=== PATIENT | female | born 1955 | race Caucasian/White ===

== ENCOUNTER 2018-04-29 08:29 | Emergency (ER) | payer OTHER ==
[2018-04-29] MEDS ORDERED: NA CHLORIDE 0.9% 1,000 ML ONE (09:04)
[2018-04-29] MEDS ORDERED: LORazepam 2 MG/ML VIAL ONE (09:04)
--- NOTE | 2018-04-29 09:11 | RAD REPORT ---
EXAM DESCRIPTION: CT - Head Brain Wo Cont - 04/29/2018 9:02 am CLINICAL HISTORY: Transient alteration of awareness, seizure like activity COMPARISON: None. TECHNIQUE: Axial 5 mm thick images of the head were obtained without IV contrast. All CT scans are performed using dose optimization technique as appropriate and may include automated exposure control or mA/KV adjustment according to patient size. FINDINGS: No intracranial hemorrhage, mass, edema or shift of mid-line structures. No acute infarcti on changes seen. Moderate severity atrophy changes are present. Ventricles are in proportion. Chronic ischemic changes are minimal. Asymmetry is created by head tilt and slight rotation. Mastoid air cells and visualized portions of the paranasal sinuses are clear. No acute bony findings. IMPRESSION: Moderate severity atrophy with no hemorrhage, mass or acute intracranial finding.
[2018-04-29 09:22] LABS: Absolute Lymphocytes (CBC) 1.7 K/uL (0.7-4.9); Absolute Monocytes 0.5 K/uL (0.1-1.3); Absolute Neutrophil 4.8 K/uL (1.8-8.0); Basophils % 0.7 % (0-1.3); Eosinophils % 3.8 % (0-4.4); Hematocrit 36.5 % (36.0-45.0); Lymphocytes % 23.8 % (15.3-44.8); MPV 8.1 fL (7.6-11.3); Monocytes % 6.2 % (3.3-12.3); RBC Red Blood Cell Count 3.89 M/uL (3.86-4.86)
[2018-04-29 09:30] LABS: Arterial Blood Carboxyhemoglob 0.9 % (0-1.5); Blood Gas Oxyhemoglobin 67.2 % (94-97); Blood O2 Saturation 68.4 % (92-98.5)
[2018-04-29 09:31] LABS: Bilirubin Direct 0.1 mg/dL (0-0.2); Bilirubin Total 0.4 mg/dL (0.2-1.0); Magnesium 2.1 mg/dL (1.8-2.4); Protein, Total 6.1 g/dL (6.4-8.2); Troponin (Emerg Dept Use Only) 0.09 ng/mL (0.0-0.045)
[2018-04-29 09:34] LABS: Protime INR 0.89
--- NOTE | 2018-04-29 10:39 | ER ---
Nurse's Notes [facility] Name: Mary Barajas Age: 62 yrs Sex: Female : 1955 Arrival Date: 04/29/2018 Time: 08:30 Bed 2 Private MD: Diagnosis: Weakness-seizure like activity;Do not resuscitate Presentation: 04/29 08:30 Presenting complaint: EMS states: from [facility], reported to have seizure like hj activity this AM, per staff, turned cyanotic,per EMS, on scene, pt was alert and restless; BGL- 110; O2 sat- 97-98%; ativan 2 mg Im given at 8:13am; pt has DNR papers on file from correction;. Transition of care: patient was not received from another setting of care. Onset of symptoms was April 29, 2018. Risk Assessment: Do you want to hurt yourself or someone else? Patient reports no desire to harm self or others. Initial Sepsis Screen: Does the patient meet any 2 criteria? No. Patient's initial sepsis screen is negative. Does the patient have a suspected source of infection?. Care prior to arrival: None. 08:30 Method Of Arrival: EMS: [facility] 08:30 Acuity: SAVAGE 3 hj Triage Assessment: 08:36 General: Appears in no apparent distress. uncomfortable, Behavior is cooperative, hj restless. Pain: Denies pain. EENT: No signs and/or symptoms were reported regarding the EENT system. Neuro: Level of Consciousness is awake, confused, listless, Oriented to none. Historical: - Allergies: 08:36 No Known Allergies; hj - Home Meds: 08:36 Bentyl 10 mg Oral cap 1 cap 3 times per day [Active]; lisinopril 10 mg Oral tab 1 tab hj once daily [Active]; ProAir HFA 90 mcg/actuation inhalation HFAA 1 puff every 4-6 hours [Active]; - PMHx: 08:36 Alzheimers; COPD; hj - PSHx: 08:36 Unable to obtain; hj - Immunization history:: Adult Immunizations unknown. - Social history:: Smoking status: unknown. - Ebola Screening: : Patient negative for fever greater than or equal to 101.5 degrees Fahrenheit, and additional compatible Ebola Virus Disease symptoms Patient denies exposure to infectious person Patient denies travel to an Ebola-affected area in the 21 days before illness onset. - Family history:: not pertinent. Screenin:36 Abuse screen: Denies threats or abuse. Denies injuries from another. Nutritional hj screening: No deficits noted. Tuberculosis screening: No symptoms or risk factors identified. Fall Risk None identified. Assessment: 08:36 General: Appears in no apparent distress. uncomfortable, slender, Behavior is restless. hj Pain: Denies pain. Neuro: Level of Consciousness is awake, confused, Oriented to none. Cardiovascular: Capillary refill < 3 seconds Patient's skin is warm and dry. Respiratory: Airway is patent Respiratory effort is even, unlabored, Respiratory pattern is regular, symmetrical. GI: No signs and/or symptoms were reported involving the gastrointestinal system. : No signs and/or symptoms were reported regarding the genitourinary system. EENT: No signs and/or symptoms were reported regarding the EENT system. Derm: No signs and/or symptoms reported regarding the dermatologic system. Musculoskeletal: No signs and/or symptoms reported regarding the musculoskeletal system. 09:49 Reassessment: Patient and/or family updated on plan of care and expected duration. Pain hj level reassessed. family in room;. 10:35 Reassessment: Patient and/or family updated on plan of care and expected duration. Pain hj level reassessed. awaiting results and POC;. 11:53 Reassessment: Patient and/or family updated on plan of care and expected duration. Pain hj level reassessed. hospitalist in room with family; family expressed desire for hospice care;. 12:37 Reassessment: D/C instructions given to family;. hj 12:41 Reassessment: dental secretary to call [facility] for transport;. 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 hj 14:47 Reassessment: ash D/C'd; verbal order from Dr. Fraga. Reassessment: Patient and/or hj family updated on plan of care and expected duration. Pain level reassessed. [employer] here to peanut picker pt;. Vital Signs: 08:38 BP 110 / 82; Pulse 63; Resp 18; Temp 97.9(R); Pulse Ox 98% on R/A; Weight 68.04 kg; hj Height 5 ft. 3 in. (160.02 cm); 09:37 BP 106 / 90; Pulse 72; Resp 18; Pulse Ox 100% on R/A; hj 10:36 BP 92 / 67; Pulse 75; Resp 18; Pulse Ox 100% on R/A; hj 11:10 BP 124 / 89; Pulse 76; Resp 18; Pulse Ox 100% on R/A; hj 11:53 BP 90 / 57; Pulse 64; Resp 18; Pulse Ox 100% on R/A; hj 12:38 BP 87 / 59; Pulse 68; Resp 18; Pulse Ox 100% on R/A; hj 13:30 BP 87 / 56; Pulse 69; Resp 18; Pulse Ox 100% on R/A; hj 14:28 BP 90 / 57; Pulse 66; Resp 18; Pulse Ox 100% on R/A; hj 08:38 Body Mass Index 26.57 (68.04 kg, 160.02 cm) hj 10:36 MD notified hj Patricia Coma Score: 08:36 Eye Response: spontaneous(4). Verbal Response: confused(4). Motor Response: obeys commands(6). Total: 14. ED Course: 08:30 Patient arrived in ED. hj 08:32 Triage completed. hj 08:33 Zen Baron MD is Attending Physician. krystal 08:37 Arm band placed on right wrist. hj 08:37 Patient has correct armband on for positive identification. Placed in gown. Bed in low hj position. Call light in reach. Side rails up X2. Seizure precautions initiated. 08:39 Chapito Chavarria, AMMY is Primary Nurse. hj 08:53 Initial lab(s) drawn, by me, sent to lab. Inserted saline lock: 22 gauge in left wrist, dh3 using aseptic technique. Blood collected. 08:54 Radiology exam delayed due to x ray delayed, pt going to ct [facility] 09[facility]03 CT completed. Patient tolerated procedure well. Patient moved to CT via stretcher. jg6 Patient moved back from CT. 09:03 CT Head Brain wo Cont In Process Unspecified. EDMS 09:59 X-ray completed. Portable x-ray completed in exam room. Patient tolerated procedure sw well. 10:02 XRAY Chest (1 view) In Process Unspecified. EDMS 10:20 First set of blood cultures drawn by me. Missed attempt(s): 22 gauge in right wrist. dh3 Bleeding controlled, band aid applied, catheter tip intact. 10:25 Ash cath inserted, using sterile technique, 16 Fr., by me, balloon inflated, to dh3 gravity drainage, urine specimen collected. returned clear yellow urine. Patient tolerated well. 30cc. 10:37 Taylor Fraga MD is Hospitalizing Provider. krystal 12:58 No provider procedures requiring assistance completed. IV discontinued, intact, hj bleeding controlled, No redness/swelling at site. Pressure dressing applied. Administered Medications: Discontinued: NS 0.9% 1000 ml IV at 125 ml/hr continuous Discontinued: Zosyn 3.375 grams IVPB once over 60 mins; (mix in NS 100 mL) 08:58 Drug: Ativan 1 mg Route: IVP; Site: left wrist; hj 10:46 Follow up: Response: No adverse reaction hj 09:01 Drug: NS 0.9% 1000 ml Route: IV; Rate: 125 ml/hr; Site: left wrist; hj 11:48 Follow up: IV Status: Order to discontinue infusion hj 10:58 Drug: Zosyn 3.375 grams Route: IVPB; Infused Over: 60 mins; Site: left wrist; hj 11:15 Follow up: IV Status: Completed infusion hj 11:47 Not Given (per , pt pulled IV, will be on hospice): Ativan 1 mg IVP once hj Outcome: 10:39 Decision to Hospitalize by Provider. krystal 12:24 Discharge ordered by . krystal 12:58 Discharged to correction. Report called to Yamilex Larson RN Transfer form hj completed. 12:58 Condition: stable 12:58 Instructed on discharge instructions, Demonstrated understanding of instructions. 14:51 Patient left the ED. Addendum: 05/03/2018 08:25 Addendum: Culture Results: Positive urine culture. Phone call Attempt #1 faxed culture s s report to CONI Silver. Signatures: Dispatcher [employer] Zen Stoll MD MD cha Buechter, Jesse jb2 Gwen Betancourt RN RN Emilie Turner Henry, RN RN Breana Ku 3 Gretta Llanesg6 Corrections: (The following items were deleted from the chart) 04/29 08:49 08:30 Presenting complaint: EMS states: from [facility], reported to have hj seizure like activity this AM, per staff, turned cyanotic,per EMS, on scene, pt was alert and restless; BGL- 110; O2 sat- 97-98%; ativan 2 mg Im given at 8:13am; hj 08:51 08:38 Pulse 63bpm; Resp 18bpm; Pulse Ox 98% RA; Temp 97.9F Rectal; 68.04 kg; Height 5 hj ft. 3 in.; BMI: 26.5; hj
--- NOTE | 2018-04-29 10:40 | EDPHYS ---
Physician Documentation [facility] Name: Mary Barajas Age: 62 yrs Sex: Female : 1955 Arrival Date: 04/29/2018 Time: 08:30 Bed 2 Private MD: Zen Lion HPI: 04/29 08:40 This 62 yrs old Female presents to ER via EMS with complaints of Seizure. krystal 08:40 The patient presents after having a single isolated seizure, that lasted 1 minute(s). krystal Character of seizure(s): Loss of consciousness: the patient experienced loss of consciousness, Motor activity: generalized. Seizure onset: just prior to arrival, this morning. Context: the seizure(s) was witnessed, by the care home staff, occurred at a care home or assisted living facility. Seizure Hx: the patient has no previous seizure history. Associated injury: The patient did not suffer any apparent associated injury. The patient has not experienced similar symptoms in the past. Historical: - Allergies: 08:36 No Known Allergies; hj - Home Meds: 08:36 Bentyl 10 mg Oral cap 1 cap 3 times per day [Active]; lisinopril 10 mg Oral tab 1 tab hj once daily [Active]; ProAir HFA 90 mcg/actuation inhalation HFAA 1 puff every 4-6 hours [Active]; - PMHx: 08:36 Alzheimers; COPD; hj - PSHx: 08:36 Unable to obtain; hj - Immunization history:: Adult Immunizations unknown. - Social history:: Smoking status: unknown. - Ebola Screening: : Patient negative for fever greater than or equal to 101.5 degrees Fahrenheit, and additional compatible Ebola Virus Disease symptoms Patient denies exposure to infectious person Patient denies travel to an Ebola-affected area in the 21 days before illness onset. - Family history:: not pertinent. ROS: 08:40 Constitutional: Negative for fever, chills, and weight loss, Eyes: Negative for injury, krystal pain, redness, and discharge, ENT: Negative for injury, pain, and discharge, Neck: Negative for injury, pain, and swelling, Cardiovascular: Negative for chest pain, palpitations, and edema, Respiratory: Negative for shortness of breath, cough, wheezing, and pleuritic chest pain, Abdomen/GI: Negative for abdominal pain, nausea, vomiting, diarrhea, and constipation, Back: Negative for injury and pain, : Negative for injury, bleeding, discharge, and swelling, MS/Extremity: Negative for injury and deformity, Skin: Negative for injury, rash, and discoloration, Psych: Negative for depression, anxiety, suicide ideation, homicidal ideation, and hallucinations, Allergy/Immunology: Negative for hives, rash, and allergies, Endocrine: Negative for neck swelling, polydipsia, polyuria, polyphagia, and marked weight changes, Hematologic/Lymphatic: Negative for swollen nodes, abnormal bleeding, and unusual bruising. 08:40 Neuro: Positive for altered mental status, seizure activity, weakness. Exam: 08:40 Constitutional: This is a well developed, well nourished patient who is awake, alert, krystal and in no acute distress. Head/Face: Normocephalic, atraumatic. Eyes: Pupils equal round and reactive to light, extra-ocular motions intact. Lids and lashes normal. Conjunctiva and sclera are non-icteric and not injected. Cornea within normal limits. Periorbital areas with no swelling, redness, or edema. ENT: Nares patent. No nasal discharge, no septal abnormalities noted. Tympanic membranes are normal and external auditory canals are clear. Oropharynx with no redness, swelling, or masses, exudates, or evidence of obstruction, uvula midline. Mucous membranes moist. Neck: Trachea midline, no thyromegaly or masses palpated, and no cervical lymphadenopathy. Supple, full range of motion without nuchal rigidity, or vertebral point tenderness. No Meningismus. Chest/axilla: Normal chest wall appearance and motion. Nontender with no deformity. No lesions are appreciated. Cardiovascular: Regular rate and rhythm with a normal S1 and S2. No gallops, murmurs, or rubs. Normal PMI, no JVD. No pulse deficits. Respiratory: Lungs have equal breath sounds bilaterally, clear to auscultation and percussion. No rales, rhonchi or wheezes noted. No increased work of breathing, no retractions or nasal flaring. Abdomen/GI: Soft, non-tender, with normal bowel sounds. No distension or tympany. No guarding or rebound. No evidence of tenderness throughout. Back: No spinal tenderness. No costovertebral tenderness. Full range of motion. Skin: Warm, dry with normal turgor. Normal color with no rashes, no lesions, and no evidence of cellulitis. MS/ Extremity: Pulses equal, no cyanosis. Neurovascular intact. Full, normal range of motion. 08:40 Musculoskeletal/extremity: Extremities: no acute changes, Circulation is intact in all extremities. Compartment Syndrome exam of affected extremity: is normal. Weight bearing: is unable to bear weight, DVT Exam: no pain, no swelling, no tenderness, negative Homans' sign noted on exam, no appreciated bluish discoloration, no erythema, no increased warmth. 08:40 Neuro: Orientation: Not oriented to person, place, time, situation. Vital Signs: 08:38 BP 110 / 82; Pulse 63; Resp 18; Temp 97.9(R); Pulse Ox 98% on R/A; Weight 68.04 kg; hj Height 5 ft. 3 in. (160.02 cm); 09:37 BP 106 / 90; Pulse 72; Resp 18; Pulse Ox 100% on R/A; 10:36 BP 92 / 67; Pulse 75; Resp 18; Pulse Ox 100% on R/A; 11:10 BP 124 / 89; Pulse 76; Resp 18; Pulse Ox 100% on R/A; hj 11:53 BP 90 / 57; Pulse 64; Resp 18; Pulse Ox 100% on R/A; hj 12:38 BP 87 / 59; Pulse 68; Resp 18; Pulse Ox 100% on R/A; 13:30 BP 87 / 56; Pulse 69; Resp 18; Pulse Ox 100% on R/A; 14:28 BP 90 / 57; Pulse 66; Resp 18; Pulse Ox 100% on R/A; 08:38 Body Mass Index 26.57 (68.04 kg, 160.02 cm) 10:36 MD notified Scobey Coma Score: 08:36 Eye Response: spontaneous(4). Verbal Response: confused(4). Motor Response: obeys commands(6). Total: 14. MDM: 08:33 Patient medically screened. [facility] 08:44 Data reviewed: vital signs, nurses notes, lab test result(s), EKG, radiologic studies. [facility] 04/29 08:40 Order name: Basic Metabolic Panel [facility] 04/29 08:40 Order name: CBC with Diff 04/29 08:40 Order name: LFT's 04/29 08:40 Order name: Magnesium [facility] 04/29 08:40 Order name: NT PRO-BNP; Complete Time: 10:22 [facility] 04/29 08:40 Order name: PT-INR; Complete Time: 10:22 [facility] 04/29 08:40 Order name: Troponin (emerg Dept Use Only); Complete Time: 10:22 [facility] 04/29 08:40 Order name: Blood Culture Adult (2) [facility] 04/29 08:40 Order name: Lipase; Complete Time: 10:22 [facility] 04/29 08:40 Order name: Procalcitonin; Complete Time: 10:22 [facility] 04/29 08:40 Order name: Urine Culture [facility] 04/29 08:41 Order name: Basic Metabolic Panel; Complete Time: 10:22 [facility] 04/29 08:41 Order name: CBC with Automated Diff; Complete Time: 10:22 [facility] 04/29 08:41 Order name: Liver (Hepatic) Function; Complete Time: 10:22 [facility] 04/29 08:40 Order name: XRAY Chest (1 view) [facility] 04/29 08:40 Order name: CT Head Brain wo Cont; Complete Time: 10:22 [facility] 04/29 08:41 Order name: Magnesium; Complete Time: 10:22 [facility] 04/29 08:43 Order name: ABG; Complete Time: 10:22 [facility] 04/29 10:35 Order name: Urine Dipstick--Ancillary (enter results) 04/29 08:40 Order name: EKG; Complete Time: 08:41 [facility] 04/29 08:40 Order name: Cardiac monitoring; Complete Time: 08:47 [facility] 04/29 08:40 Order name: EKG - Nurse/Tech; Complete Time: 11:50 [facility] 04/29 08:40 Order name: IV Saline Lock; Complete Time: 08:59 [facility] 04/29 08:40 Order name: Labs collected and sent; Complete Time: 08:59 [facility] 04/29 08:40 Order name: O2 Per Protocol; Complete Time: 08:47 [facility] 04/29 08:40 Order name: O2 Sat Monitoring; Complete Time: 08:47 [facility] 04/29 08:40 Order name: Alarcon; Complete Time: 10:37 [facility] 04/29 08:40 Order name: Urine Dipstick-Ancillary (obtain specimen); Complete Time: 10:54 [facility] 04/29 08:43 Order name: Cardiac monitoring; Complete Time: 08:45 04/29 08:43 Order name: EKG - Nurse/Tech; Complete Time: 10:54 04/29 08:43 Order name: IV Saline Lock; Complete Time: 08:59 04/29 08:43 Order name: Labs collected and sent; Complete Time: 08:59 04/29 08:43 Order name: O2 Per Protocol; Complete Time: 08:45 04/29 08:43 Order name: O2 Sat Monitoring; Complete Time: 08:45 04/29 12:22 Order name: Social Service Consult; Complete Time: 14:43 EDMS Administered Medications: Discontinued: NS 0.9% 1000 ml IV at 125 ml/hr continuous Discontinued: Zosyn 3.375 grams IVPB once over 60 mins; (mix in NS 100 mL) 08:58 Drug: Ativan 1 mg Route: IVP; Site: left wrist; hj 10:46 Follow up: Response: No adverse reaction hj 09:01 Drug: NS 0.9% 1000 ml Route: IV; Rate: 125 ml/hr; Site: left wrist; hj 11:48 Follow up: IV Status: Order to discontinue infusion hj 10:58 Drug: Zosyn 3.375 grams Route: IVPB; Infused Over: 60 mins; Site: left wrist; hj 11:15 Follow up: IV Status: Completed infusion hj 11:47 Not Given (per MD, pt pulled IV, will be on hospice): Ativan 1 mg IVP once hj Disposition: 04/29/18 12:24 Discharged to Home. Impression: Weakness - seizure like activity, Do not resuscitate. - Condition is Stable. - Discharge Instructions: Weakness, Fatigue, Advance Directive, Weakness, [id number]. - Medication Reconciliation Form, Thank You Letter, Antibiotic Education, Prescription Opioid Use, SBAR form form. - Follow up: Private Physician; When: 1 - 2 days; Reason: Recheck today's complaints, Continuance of care, Re-evaluation by your physician. - Problem is new. - Symptoms have improved. Signatures: Dispatcher [employer] EDMS Zen Baron MD MD cha Joaquin, Henry RN RN Nisha Corbin Corrections: (The following items were deleted from the chart) 08:46 08:44 Head Brain Wo Cont+CT.RAD.BRZ ordered. [facility] EDMS 08:54 08:44 Chest Single View+RAD.RAD.BRZ ordered. [facility] EDMS 09:05 08:43 CBC+H.LAB.BRZ ordered. [facility] EDMS 09:05 08:43 PROTIME (+INR)+COAG.LAB.BRZ ordered. [facility] EDWI 09:06 08:43 BASIC METABOLIC PANEL+C.LAB.BRZ ordered. [facility] EDWI 09:07 08:43 HEPATIC FUNCTION+C.LAB.BRZ ordered. [facility] EDMS 09:07 08:43 MAGNESIUM+C.LAB.BRZ ordered. [facility] EDMS 09:07 08:43 PROBNP+C.LAB.BRZ ordered. [facility] EDWI 09:07 08:43 TROPONIN (EMERG DEPT USE ONLY)+C.LAB.BRZ ordered. [facility] EDWI 10:59 10:39 Hospitalization Ordered by Taylor Fraga MD for Inpatient Admission. Preliminary krystal diagnosis is Altered mental status, unspecified; Convulsions, not elsewhere classified - new onset. Bed requested for Telemetry/MedSurg (Inpatient). Status is Inpatient Admission. Condition is Fair. Problem is new. Symptoms have improved. UTI on Admission? No. krystal 11:04 10:59 04/29/2018 10:39 Hospitalization Ordered by Taylor Fraga MD for Inpatient eb Admission. Preliminary diagnosis is Altered mental status, unspecified; Convulsions, not elsewhere classified - new onset; Pneumonia due to other specified bacteria. Bed requested for Telemetry/MedSurg (Inpatient). Status is Inpatient Admission. Condition is Fair. Problem is new. Symptoms have improved. UTI on Admission? No. krystal 12:20 11:04 04/29/2018 10:39 Hospitalization Ordered by Taylor Fraga MD for Inpatient krystal Admission. Preliminary diagnosis is Altered mental status, unspecified; Convulsions, not elsewhere classified - new onset; Pneumonia due to other specified bacteria. Bed requested for [facility] ER HOLD. Status is Inpatient Admission. Condition is Fair. Problem is new. Symptoms have improved. UTI on Admission? No. eb 14:51 12:24 04/29/2018 12:24 Discharged to Home. Impression: Weakness - seizure like hj activity; Do not resuscitate. Condition is Stable. Forms are Medication Reconciliation Form, Thank You Letter, Antibiotic Education, Prescription Opioid Use. Follow up: Private Physician; When: 1 - 2 days; Reason: Recheck today's complaints, Continuance of care, Re-evaluation by your physician. Problem is new. Symptoms have improved. krystal
--- NOTE | 2018-04-29 10:54 | RAD REPORT ---
EXAM DESCRIPTION: RAD - Chest Single View - 04/29/2018 10:02 am CLINICAL HISTORY: Cough, cyanotic COMPARISON: None. TECHNIQUE: AP portable chest image was obtained 0952 hours . FINDINGS: A vague density is present in the right apex partially obscured by the clavicle and marker assembler ior fourth rib. Interstitial markings are prominent with the baseline for the patient unknown. This i s most likely a baseline fibrosis. Left perihilar edema or infiltrate cannot be excluded. A significa nt amount of failure or volume overload is not identified. Heart and vasculature are normal. No measu rable pleural effusion and no pneumothorax. No acute bony abnormality seen. No acute aortic findings suspected. IMPRESSION: Vague density in the right apex possibly a small mass. Follow-up two-view chest exam or follow-up CT chest study would be suggested. Baseline study shows prominent interstitial pattern worse surround the left perihilar region. In the acute clinical setting, a left interstitial edema or infiltrate is present superimposed on fib rosis.
[2018-04-29 10:58] LABS: Urine Blood NEGATIVE (NEG); Urine Glucose NEGATIVE (NEG); Urine Protein 2+ (NEG)
[2018-04-29] MEDS ORDERED: PIPER/TAZO/NS 3.375gm 3.375 GM/100 ML BAG ONE (11:23)
--- NOTE | 2018-04-29 19:15 | P.PN ---
Date of Service: 04/29/18 This is a 62-year-old female who was brought into the ER for seizure-like activity from her [facility]. Patient has a history of underlying Alzheimer' s dementia. She has been [id number] DNR signed. 2 sisters at bedside. Patient seen and examined at bedside. Patient oriented times 0, which sister states is her baseline. Patient per family, patient recently was on hospice, recently came off around 3 weeks ago as they thought she was doing better. In the ER, patient pulled on her IV. I ordered another IV placed and she will need IV fluids and other interventions that required IV. Family does not want anything invasive, including even IV line placement. Patient's NPO a, her sister, at bedside would like patient to be on hospice. Case discussed with case management who stated that they will contact [facility], patient's hospice company. [facility] can [facility] to [facility] the [facility], hospice company will meet patient there. Discussed with the family, family understand and would like patient returned to [facility] for hosp[facility] care.
--- NOTE | 2018-04-30 09:25 | EKG ---
Test Date: 2018-04-29 Test Time: 09:34:59 Tv Production Assistant: MATTHEW MEASUREMENT RESULTS: Intervals: Rate: 79 OR: 112 QRSD: 64 QT: 394 QTc: 451 [place]: P: 71 OR: 112 QRS: 89 T: 86 INTERPRETIVE STATEMENTS: Sinus rhythm with premature atrial complexes Otherwise normal ECG Compared to ECG 10/10/1999 08:10:00 Atrial premature complex(es) now present Sinus bradycardia no longer present Myocardial infarct finding no longer present Electronically Signed On 04-30-18 09:22:04 CDT by Mayank Molina
== END 2018-04-29 14:51 | disposition home or self-care (01) ==
LOC: ER 08:29
DX: R56.9 Unspecified convulsions (principal); R53.1 Weakness; J44.9 Chronic obstructive pulmonary disease, unspecified; G30.9 Alzheimer's disease, unspecified; F02.80 Dementia in other diseases classified elsewhere, unspecified severity, without behavioral disturbance, psychotic disturbance, mood disturbance, and anxiety
CPT/HCPCS: 96365; 96361; 93005; 87040 ×2; 87088; 85025; 87086; 80048; 36415; 83735; 85610; 80076; 87077; 87186; 81003; 84484; 83690; 84145; 83880; 70450; 71045; 82805; 51702; 96375; 99285; J2543; J7030